=== PATIENT | male | born 1970 | race Caucasian/White ===

== ENCOUNTER 2017-07-16 09:12 | Emergency (ER) | payer OTHER, BC ==
[2017-07-16 09:22] VITALS: BP 155/74; PULSE 78; TEMP 98.6; BMI 30.1
--- NOTE | 2017-07-16 09:58 | PDOC ---
History of Present Illness - General Chief Complaint: Laceration Stated Complaint: LT LEG LACERATION Time Seen by Provider: 07/16/17 09:32 - History of Present Illness Initial Comments: 07/16/17 09:58 CHIEF COMPLAINT: HISTORY OF PRESENT ILLNESS: 47 yo M with no PMH presents to ED with s/p laceration at work. 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 Patient states he is unsure when his last tetanus shot was. No recent travel or sick contacts. PAST MEDICAL HISTORY: Denies past medical history FAMILY HISTORY: Denies SOCIAL HISTORY: Denies tobacco, alcohol, illicit drug use. SURGICAL HISTORY: Denies ALLERGIES: No known drug allergies REVIEW OF SYSTEMS General/Constitutional: Denies fever or chills. Denies weakness, weight change. HEENT: Denies change in vision. Denies ear pain or discharge. Denies sore throat. Cardiovascular: Denies chest pain or shortness of breath. Respiratory: Denies cough, wheezing, or hemoptysis. Gastrointestinal: Denies nausea, vomiting, diarrhea or constipation. Denies rectal bleeding. Genitourinary: Denies dysuria, frequency, or change in urination. Musculoskeletal: Denies joint or muscle swelling or pain. Denies neck or back pain. Skin and breasts: "I got a little cut on my leg from something in a garbage bag. " PHYSICAL EXAM General Appearance: Well-appearing, appropriately dressed. No apparent distress , no intoxication. HEENT: EOMI, PERRLA, normal ENT inspection, normal voice, TMs normal, pharynx normal. No conjunctival pallor. No photophobia, scleral icterus. Neck: Supple. Trachea midline. No tenderness, rigidity, carotid bruit, stridor , lymphadenopathy, or thyromegaly. Respiratory/Chest: Lungs CTAB. No shortness of breath, chest tenderness, respiratory distress, accessory muscle use. No crackles, rales, rhonchi, stridor , wheezing, dullness Cardiovascular: RRR. S1, S2. No JVD, murmur, bradycardia, tachycardia. Vascular Pulses: Dorsalis-Pedis (R): 2+, Dorsalis-Pedis (L): 2+ Gastrointestinal/Abdominal: Normal bowel sounds. Abdomen soft, non-distended. No tenderness or rebound tenderness. No organomegaly, pulsatile mass, guarding , hernia, hepatomegaly, splenomegaly. Lymphatic: No adenopathy, tenderness. Musculoskeletal/Extremities: 1.5 in superficial laceration to left sandoval. Normal inspection. FROM of all extremities, normal capillary refill. Pelvis Stable. No CVA tenderness. No tenderness to extremities, pedal edema, swelling , erythema or deformity. Integumentary: Appropriate color, dry, warm. 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 Fully oriented, alert. Appropriate mood/affect. Motor strength 5/5. No appreciable EOM palsy, facial droop or sensory deficit. 07/16/17 09:59 Past History - Past Medical History Allergies/Adverse Reactions: Allergies Allergy/AdvReac Type Severity Reaction Status Date / Time No Known Allergies Allergy Verified 07/16/17 09:18 Home Medications: Ambulatory Orders NK [No Known Home Medication] 07/16/17 Other medical history: none - Immunization History Immunization Up to Date: Yes - Suicide/Smoking/Psychosocial Hx Smoking History: Current every day smoker Number of Cigarettes Smoked Daily: 15 Information on smoking cessation initiated: No Hx Alcohol Use: No Drug/Substance Use Hx: No *Physical Exam - Vital Signs Last Vital Signs Temp Pulse Resp BP Pulse Ox 98.6 F 78 18 155/74 100 07/16/17 09:19 07/16/17 09:19 07/16/17 09:19 07/16/17 09:19 07/16/17 09:19 Medical Decision Making - Medical Decision Making 07/16/17 10:02 47 yo M with no PMH presents to ED with s/p laceration at work. -Tdap lac repair performed by MD Conroy Advised patient to return for wound check/suture removal in 10-14 days. Advised patient of signs of infection and of signs and symptoms for return to ER. Patient verbalized understanding and agree to plan. *DC/Admit/Observation/Transfer Diagnosis at time of Disposition: Laceration - Discharge Dispostion Disposition: HOME Condition at time of disposition: Stable Admit: No - Referrals Referrals: Norma Asencio MD [Primary Care Provider] - - Patient Instructions Printed Discharge Instructions: DI for Laceration Repair Additional Instructions: Please keep the area of injury clean and dry for the next 24-48 hours. Afterwards you may wash with mild soap and water. Return to your primary care doctor or to this hospital in 10-14 days for wound check and/or suture removal. If you develop any redness, swelling, warmth, or increased pain to the area, or you develop any fever, chills, nausea, vomiting, or diarrhea, please return to the ER immediately.
[2017-07-16] MEDS ORDERED: DIPHTH,PERTUSS(ACELL),TET 0.5 ML DISP.SYRIN IM ONE (10:52)
== END 2017-07-16 10:58 | disposition home or self-care (01) ==
LOC: JERFT 09:12
PROC: 0HQLXZZ Repair Left Lower Leg Skin, External Approach (ICD-10-PCS; principal; 2017-07-16)
PROC: 3E0234Z Introduction of Serum, Toxoid and Vaccine into Muscle, Percutaneous Approach (ICD-10-PCS; 2017-07-16)
DX: S81.812A Laceration without foreign body, left lower leg, initial encounter (principal); W26.9XXA Contact with unspecified sharp object(s), initial encounter; Y93.89 Activity, other specified; Y92.89 Other specified places as the place of occurrence of the external cause; Y99.0 Civilian activity done for income or pay; F17.210 Nicotine dependence, cigarettes, uncomplicated
CPT/HCPCS: 90715; 99281-25

== ENCOUNTER 2018-11-15 06:52 | Observation (INO) | payer BC, OTHER ==
--- NOTE | 2018-11-15 07:27 | PDOC ---
History of Present Illness - General Stated Complaint: CHEST PAIN, SHORTNESS OF BREATH History Source: Patient Exam Limitations: No Limitations - History of Present Illness Initial Comments: 11/15/18 07:46 48 yo M with no past medical hx presents to the emergency department with midsternal chest pain that began at 6:15 am today. 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 Endorses the following associative symptoms: SOB and nausea. He states he had a similar, but less intense pain 2 weeks ago while working. He is seen by Dr. Asencio and had a stress test and echo last year that was negative. Denies fevers, chills, ears/nose/throat pain, abdominal pain, dysuria, hematuria, hematochezia, and leg pain/swelling. Social: Endorses tobacco Shx: knee surgery Allergies: NKDA Medications: None Past History - Past Medical History Allergies/Adverse Reactions: Allergies Allergy/AdvReac Type Severity Reaction Status Date / Time No Known Allergies Allergy Verified 11/15/18 07:50 Home Medications: Ambulatory Orders NK [No Known Home Medication] 07/16/17 - Immunization History Immunization Up to Date: Yes - Suicide/Smoking/Psychosocial Hx Smoking History: Current every day smoker Number of Cigarettes Smoked Daily: 15 Hx Alcohol Use: No Drug/Substance Use Hx: No Review of Systems - Review of Systems Able to Perform ROS?: Yes Is the patient limited Filipino proficient: No Constitutional: No: Chills, Diaphoresis, Fever, Weakness HEENTM: No: Eye Pain, Recent change in vision, Ear Pain, Nose Pain, Throat Pain , Mouth Pain Respiratory: Yes: Shortness of Breath. No: Cough, SOB with Exertion, Hemoptysis Cardiac (ROS): Yes: Chest Pain. No: Lightheadedness, Palpitations, Syncope, Chest Tightness ABD/GI: Yes: Nausea. No: Constipated, Diarrhea, Poor Appetite, Poor Fluid Intake, Rectal Bleeding, Vomiting, Tarry Stools : No: Burning, Dysuria, Hematuria, Urgency Musculoskeletal: No: Back Pain, Joint Pain, Neck Pain Integumentary: No: Bruising, Dryness, Flushing, Rash Neurological: No: Headache, Numbness, Tingling, Ataxia, Dizziness Psychiatric: No: Change in Appetite Endocrine: No: Unexplained Weight Gain Hematologic/Lymphatic: No: Anemia *Physical Exam - Physical Exam General Appearance: Yes: Nourished, Appropriately Dressed. No: Apparent Distress, Intoxicated HEENT: positive: EOMI, DANIS, Normal Voice, Hearing Grossly Normal. negative: Nasal Congestion, Rhinorrhea, Sinus Tenderness, Excessive drooling Neck: positive: Trachea midline. negative: Tender, Lymphadenopathy (R), Lymphadenopathy (L) Respiratory/Chest: positive: Lungs Clear, Normal Breath Sounds. negative: Chest Tender, Respiratory Distress, Accessory Muscle Use, Rapid RR, Decreased Breath Sounds, Paradoxal Breathing, Crackles, Rales, Rhonchi, Stridor, Wheezing , Hyperresonant Cardiovascular: positive: Regular Rhythm, Regular Rate, S1, S2. negative: Systolic Murmur Gastrointestinal/Abdominal: positive: Normal Bowel Sounds, Flat, Soft. negative : Tender, Distended, Rebound, Tenderness Lymphatic: negative: Adenopathy Musculoskeletal: positive: Normal Inspection. negative: CVA Tenderness, Vertebral Tenderness Extremity: positive: Normal Capillary Refill, Normal Inspection, Normal Range of Motion. negative: Tender, Swelling, Calf Tenderness Integumentary: positive: Normal Color, Dry, Warm. 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 negative: EOM Palsy, Facial Droop Heart Score/ECG Review - History History: Moderately suspicious - Electrocardiogram EKG: Normal - Age Age: 45-65 - Risk Factors Risk Factors Heart Score: Yes Smoking History Based on the list above the patient has:: 1-2 risk factors - Troponin Troponin: 1-3x normal limit - Score Heart Score - Total: 4 - ECG Intrepretation Comment:: 11/15/18 09:57 ventricular rate: 66 bpm, [place] is 156 ms, QRS is 94 ms, QTc is 396 ms, normal sinus rhythm, ED Treatment Course - LABORATORY CBC & Chemistry Diagram: 11/16/18 05:30 11/15/18 08:00 Medical Decision Making - Medical Decision Making 48 yo M with no past medical hx presents to the emergency department with midsternal chest pain that began at 6:15 am today. Initial vitals: Initial Vital Signs Temp Pulse Resp BP Pulse Ox 97.7 F 70 16 187/100 H 100 11/15/18 07:00 11/15/18 07:00 11/15/18 07:00 11/15/18 07:00 11/15/18 07:00 Work up: ddx: ACS vs URI vs PNA vs pleuritis vs pericarditis vs costochondritis orders: cbc, cmp, trops, ekg, cxr, pt/inr, aptt interventions: tylenol, IVF, aspirin, nitro Laboratory Tests 11/15/18 11/15/18 11/15/18 08:00 08:00 08:00 WBC 7.5 RBC 5.65 H Hgb 17.4 H Hct 49.1 H MCV 87.0 MCH 30.7 MCHC 35.3 RDW 13.3 Plt Count 216 MPV 8.6 Absolute Neuts (auto) 4.4 Neutrophils % 58.6 Lymphocytes % 30.3 Monocytes % 8.2 Eosinophils % 2.0 Basophils % 0.9 Nucleated RBC % 0 PT with INR 11.10 INR 0.94 PTT (Actin FS) 33.3 Sodium 137 Potassium 4.2 Chloride 106 Carbon Dioxide 24 Anion Gap 7 L BUN 16 Creatinine 0.8 Creat Clearance w eGFR > 60 Random Glucose 164 H Calcium 9.1 Total Bilirubin 0.2 AST 18 ALT 39 Alkaline Phosphatase 181 H Creatine Kinase 128 Troponin I 0.07 H Total Protein 7.3 Albumin 4.2 troponins were elevated at 0.07. 11/15/18 09:52 Dr. Asencio's office was contacted. Physician business liaison manager for Dr. Asencio accepted the admission. Dr. Meraz was consulted for cardiology and a call was placed to his office. Dr. Baig is business liaison manager for him. A call was placed at 9:45 am. Another call placed at approximately 10:20 am with an overhead page. Dispo: Admission *DC/Admit/Observation/Transfer Diagnosis at time of Disposition: Elevated troponin Chest pain Qualifiers: Chest pain type: unspecified Qualified Code(s): R07.9 - Chest pain, unspecified - Referrals - Patient Instructions - Post Discharge Activity
[2018-11-15 07:50] VITALS: BMI 30.9
[2018-11-15] MEDS ORDERED: ACETAMINOPHEN 1000 MG/100 ML VIAL (NON FORMULARY) IVPB ONE (07:56)
[2018-11-15] MEDS ORDERED: SODIUM CHLORIDE 1,000 ML IV STA (07:56)
[2018-11-15] MEDS ORDERED: ONDANSETRON 4 MG/2 ML VIAL IVPUSH ONE (07:56)
[2018-11-15] MEDS ORDERED: ACETAMINOPHEN INJECTION 100 ML IVPB ONE (08:04)
[2018-11-15] MEDS ORDERED: ONDANSETRON 4 MG/2 ML VIAL ONE (08:04)
[2018-11-15 08:26] LABS: BASO % 0.9 % (0-2.0); HEMATOCRIT 49.1 % (35.4-49); HEMOGLOBIN 17.4 GM/dL (11.7-16.9); LYMPH % 30.3 % (8-40); MCH 30.7 pg (25.7-33.7); MCHC 35.3 g/dl (32.0-35.9); MEAN PLT VOLUME 8.6 fl (7.5-11.1); MONO % 8.2 % (3.8-10.2); NEUT % 58.6 % (42.8-82.8); PLATELET COUNT 216 K/MM3 (134-434); RBC 5.65 M/mm3 (4.00-5.60); RDW 13.3 % (11.9-15.9); WHITE BLOOD COUNT 7.5 K/mm3 (4.0-10.0)
--- NOTE | 2018-11-15 08:44 | PDOC ---
Attending Attestation - Resident Resident Name: Hu Hall - ED Attending Attestation I have performed the following: I have examined & evaluated the patient, The case was reviewed & discussed with the resident, I agree w/resident's findings & plan, Exceptions are as noted - HPI HPI: 48 yo M no prior history presents with substernal cp starting at 6:15 this morning, while lifting heavy garbage bags. +Prior similar symptoms 2 weeks ago. History negative stress test 1 year ago, +FH of cardiac disease. - Physicial Exam PE: GENERAL: Awake, alert, and fully oriented, in no acute distress HEAD: No signs of trauma EYES: PERRLA, EOMI, sclera anicteric, conjunctiva clear ENT: Auricles normal inspection, hearing grossly normal, nares patent, oropharynx clear without exudates. Moist mucosa NECK: Normal ROM, supple, no lymphadenopathy, JVD, or masses LUNGS: Breath sounds equal, clear to auscultation bilaterally. No wheezes, and no crackles HEART: Regular rate and rhythm, normal S1 and S2, no murmurs, rubs or gallops ABDOMEN: Soft, nontender, normoactive bowel sounds. No guarding, no rebound. No masses EXTREMITIES: Normal range of motion, no edema. No clubbing or cyanosis. No cords, erythema, or tenderness NEUROLOGICAL: Cranial nerves II through XII grossly intact. Normal speech, normal gait. Motor and sensation intact SKIN: Warm, Dry, normal turgor, no rashes or lesions noted. - Medical Decision Making Pt with exertional cp x2 times over the past 2 weeks. Will d/w cardiology and plan for admission.
[2018-11-15] MEDS ORDERED: NITROGLYCERIN SUBLINGUAL 1/150 0.4 MG TAB SL ONE (08:48)
[2018-11-15] MEDS ORDERED: ASPIRIN 81 MG CHEWABLE TABLETS PO ONE (08:48)
[2018-11-15] MEDS ORDERED: NITROGLYCERIN SUBLINGUAL 1/150 0.4 MG TAB ONE (08:50)
[2018-11-15] MEDS ORDERED: ASPIRIN 81 MG CHEWABLE TABLETS ONE (08:50)
[2018-11-15 08:53] LABS: ALBUMIN 4.2 g/dl (3.4-5.0); ALK PHOS 181 U/L (45-117); ANION GAP 7 MMOL/L (8-16); BILIRUBIN,TOTAL 0.2 mg/dL (0.2-1); BLOOD UREA NITROGEN 16 mg/dL (7-18); CALCIUM 9.1 mg/dL (8.5-10.1); CHLORIDE 106 mmol/L (98-107); CO2 24 mmol/L (21-32); CREATININE 0.8 mg/dL (0.55-1.3); GLUCOSE,RANDOM 164 mg/dL (74-106); POTASSIUM 4.2 mmol/L (3.5-5.1); SGOT/AST 18 U/L (15-37); SGPT/ALT 39 U/L (13-61); SODIUM 137 mmol/L (136-145); TOT PROT 7.3 g/dl (6.4-8.2)
[2018-11-15 08:57] LABS: INR 0.94 (0.83-1.09); PROTHROMBIN TIME (PATIENT) 11.1 SEC (9.7-13.0)
[2018-11-15 08:59] LABS: ACTIVATED PTT 33.3 SECONDS (25.2-36.5)
--- NOTE | 2018-11-15 10:45 | EKG ---
Test Reason : Blood Pressure : / mmHG Vent. Rate : 066 BPM Atrial Rate : 066 BPM P-R Int : 156 ms QRS Dur : 094 ms QT Int : 378 ms P-R-T Axes : 024 069 037 degrees QTc Int : 396 ms NORMAL SINUS RHYTHM POSSIBLE INFERIOR INFARCT , AGE UNDETERMINED ABNORMAL ECG NO PREVIOUS ECGS AVAILABLE Confirmed by CHRISTINE WARREN, JUAN C ([id number]) on 11/15/2018 10:45:31 AM Referred By: Confirmed By:JUAN C KING MD
--- NOTE | 2018-11-15 12:29 | CON.CARD ---
Consult Consult Specialty:: Cardiology - History of Present Illness History of Present Illness: 48 yo M with no past medical hx presents to the emergency department with midsternal chest pain that began at 6:15 am today. 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 Endorses the following associative symptoms: SOB and nausea. He states he had a similar, but less intense pain 2 weeks ago while working. He is seen by Dr. Asencio and had a stress test and echo last year that was negative. Denies fevers, chills, ears/nose/throat pain, abdominal pain, dysuria, hematuria, hematochezia, and leg pain/swelling. Social: Endorses tobacco Shx: knee surgery Allergies: NKDA Medications: None - History Source History Provided By: Patient, Medical Record - Alcohol/Substance Use Hx Alcohol Use: No - Smoking History Smoking history: Current every day smoker Have you smoked in the past 12 months: Yes Aproximately how many cigarettes per day: 15 Home Medications - Allergies Allergies/Adverse Reactions: Allergies Allergy/AdvReac Type Severity Reaction Status Date / Time No Known Allergies Allergy Verified 11/15/18 07:50 - Home Medications Home Medications: Ambulatory Orders NK [No Known Home Medication] 07/16/17 Review of Systems - Review of Systems Constitutional: reports: No Symptoms Eyes: reports: No Symptoms HENT: reports: No Symptoms Neck: reports: No Symptoms Cardiovascular: reports: Chest Pain Gastrointestinal: reports: No Symptoms Genitourinary: reports: No Symptoms Breasts: reports: No Symptoms Reported Musculoskeletal: reports: No Symptoms Integumentary: reports: No Symptoms Neurological: reports: No Symptoms Endocrine: reports: No Symptoms Hematology/Lymphatic: reports: No Symptoms Psychiatric: reports: No Symptoms Vital Signs: Vital Signs Temperature 97.7 F 11/15/18 07:00 Pulse Rate 54 L 11/15/18 09:47 Respiratory Rate 18 11/15/18 09:47 Blood Pressure 139/74 11/15/18 09:47 O2 Sat by Pulse Oximetry (%) 98 11/15/18 09:47 Constitutional: Yes: Well Nourished, No Distress, Calm Eyes: Yes: WNL, Conjunctiva Clear, EOM Intact HENT: Yes: WNL, Atraumatic, Normocephalic Neck: Yes: WNL, Supple, Trachea Midline Respiratory: Yes: WNL, Regular, CTA Bilaterally Gastrointestinal: Yes: WNL, Normal Bowel Sounds Renal/: Yes: WNL Cardiovascular: Yes: WNL, Regular Rate and Rhythm Musculoskeletal: Yes: WNL Extremities: Yes: WNL Integumentary: Yes: WNL Neurological: Yes: WNL, Alert, Oriented ...Motor Strength: WNL Psychiatric: Yes: WNL, Alert, Oriented - Other Data Labs, Other Data: CBC, BMP 11/15/18 08:00 11/15/18 08:00 INR, PTT INR 0.94 (0.83-1.09) 11/15/18 08:00 Troponin, BNP 11/15/18 08:00 Troponin I 0.07 H Troponin, BNP 11/15/18 08:00 Troponin I 0.07 H Laboratory Tests 11/15/18 11/15/18 11/15/18 08:00 08:00 08:00 WBC 7.5 RBC 5.65 H Hgb 17.4 H Hct 49.1 H MCV 87.0 MCH 30.7 MCHC 35.3 RDW 13.3 Plt Count 216 MPV 8.6 Absolute Neuts (auto) 4.4 Neutrophils % 58.6 Lymphocytes % 30.3 Monocytes % 8.2 Eosinophils % 2.0 Basophils % 0.9 Nucleated RBC % 0 PT with INR 11.10 INR 0.94 PTT (Actin FS) 33.3 Sodium 137 Potassium 4.2 Chloride 106 Carbon Dioxide 24 Anion Gap 7 L BUN 16 Creatinine 0.8 Creat Clearance w eGFR > 60 Random Glucose 164 H Calcium 9.1 Total Bilirubin 0.2 AST 18 ALT 39 Alkaline Phosphatase 181 H Creatine Kinase 128 Troponin I 0.07 H Total Protein 7.3 Albumin 4.2 Imaging - Results Chest X-ray: Image Reviewed (no i/e) EKG: Image Reviewed (sr ?old IW HI) Assessment/Plan angina borderline elevation pof TNI,s neg cardiac w/u as per patient last year Plan echo serial ekgs and CE add Plavix Toprol check lipids depending on hospital course may need c. cath or stress test.
[2018-11-15] MEDS: metoPROLOL SUCCINATE 25 MG TAB.SR.24H (FP) PO SCH (13:50)
[2018-11-15] MEDS ORDERED: CLOPIDOGREL BISULFATE 300 MG TABLET PO ONE (13:55)
[2018-11-15] MEDS ORDERED: CLOPIDOGREL BISULFATE 300 MG TABLET ONE (14:42)
--- NOTE | 2018-11-15 14:53 | HP ---
Admitting History and Physical - Primary Care Physician PCP: Norma Asencio - Admission Chief Complaint: chest pain History of Present Illness: developed retrosternal chest pain/burning this am, lasted several minutes. similar episode about a month ago. felt uncomfortable enough to come to er. non-radiating, no associated nausea, vomiting, dizziness, palpitation, diaphoresis. pain resolved by itself, however on arrival pt was very hypertensive, 187/100 received sl. nitrate, currently bp is controlled. History Source: Patient Limitations to Obtaining History: No Limitations - Past Medical History Endocrine: Yes: Other (pre-diabetes) - Past Surgical History Additional Past Surgical History: patellar surgery after accident - Smoking History Smoking history: Current every day smoker Have you smoked in the past 12 months: Yes Aproximately how many cigarettes per day: 15 - Alcohol/Substance Use Hx Alcohol Use: No - Social History Usual Living Arrangement: Yes: With Spouse ADL: Independent History of Recent Travel: No Home Medications - Allergies Allergies/Adverse Reactions: Allergies Allergy/AdvReac Type Severity Reaction Status Date / Time No Known Allergies Allergy Verified 11/15/18 07:50 - Home Medications Home Medications: Ambulatory Orders NK [No Known Home Medication] 07/16/17 Family Disease History - Family Disease History Family Disease History: Heart Disease: Father (CAD) Review of Systems Findings/Remarks: currently well, no complaints - Review of Systems Constitutional: reports: No Symptoms Eyes: reports: No Symptoms HENT: reports: No Symptoms Neck: reports: No Symptoms Cardiovascular: reports: No Symptoms Respiratory: reports: No Symptoms Gastrointestinal: reports: No Symptoms Genitourinary: reports: No Symptoms Musculoskeletal: reports: No Symptoms Integumentary: reports: No Symptoms Neurological: reports: No Symptoms Physical Examination Vital Signs: Vital Signs Temperature 97.7 F 11/15/18 07:00 Pulse Rate 54 L 11/15/18 09:47 Respiratory Rate 18 11/15/18 09:47 Blood Pressure 139/74 11/15/18 09:47 O2 Sat by Pulse Oximetry (%) 98 11/15/18 09:47 Constitutional: Yes: Well Nourished, No Distress Eyes: Yes: Conjunctiva Clear, EOM Intact HENT: Yes: Normocephalic Neck: Yes: Supple, Trachea Midline Cardiovascular: Yes: Regular Rate and Rhythm. No: Murmur Respiratory: Yes: Regular, CTA Bilaterally Gastrointestinal: Yes: Normal Bowel Sounds, Soft Musculoskeletal: Yes: WNL Extremities: Yes: WNL Edema: No Peripheral Pulses WNL: Yes Neurological: Yes: WNL Labs: CBC, BMP 11/15/18 08:00 11/15/18 08:00 Abnormal Lab Results 11/15/18 11/15/18 11/15/18 08:00 08:00 15:30 RBC 5.65 H Hgb 17.4 H Hct 49.1 H Anion Gap 7 L Random Glucose 164 H Alkaline Phosphatase 181 H Troponin I 0.07 H 0.10 H Imaging - Results Chest X-ray: Report Reviewed Problem List - Problems (1) HTN (hypertension) Code(s): I10 - ESSENTIAL (PRIMARY) HYPERTENSION Qualifiers: Hypertension type: essential hypertension Qualified Code(s): I10 - Essential (primary) hypertension (2) Chest pain Code(s): R07.9 - CHEST PAIN, UNSPECIFIED Qualifiers: Chest pain type: unspecified Qualified Code(s): R07.9 - Chest pain, unspecified Assessment/Plan r/o ACS serial cardiac enzyme echo stress test vs. cardiac cath, depending on above results. consult appreciated.
[2018-11-16 06:11] LABS: BASO % 0.8 % (0-2.0); LYMPH % 36.5 % (8-40); MCH 30.3 pg (25.7-33.7); MCHC 34.7 g/dl (32.0-35.9); MEAN CELL VOLUME 87.3 fl (80-96); MEAN PLT VOLUME 8.7 fl (7.5-11.1); MONO % 8.1 % (3.8-10.2); NEUT % 51.6 % (42.8-82.8); PLATELET COUNT 206 K/MM3 (134-434); RBC 5.61 M/mm3 (4.00-5.60); RDW 13.2 % (11.9-15.9); WHITE BLOOD COUNT 7.5 K/mm3 (4.0-10.0)
[2018-11-16] MEDS ORDERED: amLODIPine BESYLATE 5 MG TABLET (FP) ONE (08:43)
[2018-11-16] MEDS: amLODIPine BESYLATE 5 MG TABLET (FP) PO SCH (09:09)
--- NOTE | 2018-11-16 09:11 | PN ---
Progress Note (short form) - Note Progress Note: seen at [facility] troponin peaked at 0.1 yesterday afternoon, this am 0.06 wnl had a short episode of burning chest pain last night again BP elevated sugar elevated CBC, BMP 11/16/18 05:30 11/15/18 08:00 Vital Signs Period Temp Pulse Resp BP Sys/Awan Pulse Ox Last 24 Hr 54-68 18-18 139-156/74-107 98-99 s1s2 rrr lungs cta abd soft nt no edema HTN NIDDM chest pain r/o cad stress test this am cont asa/plavix for now add metformin needs close outpt f/up after dc provided stress test is normal Problem List - Problems (1) HTN (hypertension) Code(s): I10 - ESSENTIAL (PRIMARY) HYPERTENSION Qualifiers: Hypertension type: essential hypertension Qualified Code(s): I10 - Essential (primary) hypertension (2) Chest pain Code(s): R07.9 - CHEST PAIN, UNSPECIFIED Qualifiers: Chest pain type: unspecified Qualified Code(s): R07.9 - Chest pain, unspecified
[2018-11-16 10:03] LABS: ALBUMIN 3.7 g/dl (3.4-5.0); ALK PHOS 159 U/L (45-117); ANION GAP 10 MMOL/L (8-16); BILIRUBIN,TOTAL 0.2 mg/dL (0.2-1); BLOOD UREA NITROGEN 17 mg/dL (7-18); CALCIUM 8.8 mg/dL (8.5-10.1); CHLORIDE 106 mmol/L (98-107); CHOLESTEROL 274 mg/dL (50-200); CO2 22 mmol/L (21-32); CREATININE 0.8 mg/dL (0.55-1.3); GLUCOSE,RANDOM 151 mg/dL (74-106); HDL CHOLESTEROL 31 mg/dL (40-60); POTASSIUM 4.2 mmol/L (3.5-5.1); SGOT/AST 13 U/L (15-37); SGPT/ALT 32 U/L (13-61); SODIUM 139 mmol/L (136-145); TOT PROT 6.5 g/dl (6.4-8.2); TRIGLYCERIDES 344 mg/dL (0-150)
[2018-11-16] MEDS ORDERED: ATORVASTATIN CA 80 MG TABLET (FP) PO ONE (10:13)
--- NOTE | 2018-11-16 11:16 | ECHO ---
Name: ARACELY CERON Exam:Adult Echocardiogram Study Date: 11/15/2018 02:30 PM Age: 48 yrs Reason For Study: LVEF Height: 71 in Weight: 222 lb BSA: 2.2 m2 MMode/2D Measurements & Calculations IVSd: 0.98 cm Ao root diam: 2.7 cm LVIDd: 5.4 cm LA dimension: 4.2 cm LVIDs: 3.4 cm LVPWd: 0.95 cm EDV(Teich): 139.7 ml TAPSE: 1.9 cm ESV(Teich): 48.8 ml Doppler Measurements & Calculations MV E max gilberto: 97.2 cm/sec Ao V2 max: 155.3 cm/sec MV A max gilberto: 93.8 cm/sec Ao max P.6 mmHg MV E/A: 1.0 Ao V2 mean: 109.0 cm/sec MV dec time: 0.17 sec Ao mean P.3 mmHg Ao V2 VTI: 29.9 cm LV V1 max P.7 mmHg MR max gilberto: 360.9 cm/sec LV V1 mean P.8 mmHg MR max P.4 mmHg LV V1 max: 96.1 cm/sec LV V1 mean: 61.3 cm/sec LV V1 VTI: 17.5 cm Med Peak E' Gilberto: 7.1 cm/sec Med E/e': 13.7 Lat Peak E' Gilberto: 7.1 cm/sec Lat E/e': 13.7 Procedure A complete two-dimensional transthoracic echocardiogram was performed (2D, M-mode, Doppler and color flow Doppler). Left Ventricle The left ventricle is normal in size. Left ventricular systolic function is normal. Ejection Fraction = 60- 65%. No regional wall motion abnormalities noted. Right Ventricle The right ventricle is normal size. The right ventricular systolic function is normal. RV systolic TD I is 11 cm/s. Atria The left atrium is mildly dilated. Right atrial size is normal. Mitral Valve There is mild mitral annular calcification. There is mild mitral regurgitation. Tricuspid Valve The tricuspid valve is normal in structure and function. There is mild tricuspid regurgitation. Aortic Valve The aortic valve is normal in structure and function. No aortic regurgitation is present. Pulmonic Valve The pulmonic valve is not well visualized. Great Vessels The aortic root is normal size. Pericardium/Pleura There is no pericardial effusion. Interpretation Summary The left ventricle is normal in size. Left ventricular systolic function is normal. No regional wall motion abnormalities noted. Ejection Fraction = 60-65%. The right ventricular systolic function is normal. The left atrium is mildly dilated. Right atrial size is normal. There is mild mitral annular calcification. There is mild mitral regurgitation. There is mild tricuspid regurgitation. There is no pericardial effusion. Previous study is not available for comparison Oscar Awad MD 11/16/2018 11:15 AM
[2018-11-16] MEDS ORDERED: ATORVASTATIN CA 40 MG TABLET (FP) ONE (11:32)
[2018-11-16] MEDS: metoPROLOL SUCCINATE 25 MG TAB.SR.24H (FP) PO SCH (11:46)
[2018-11-16] MEDS: CLOPIDOGREL BISULFATE 75 MG TABLET (FP) PO SCH (11:46)
--- NOTE | 2018-11-16 12:00 | PN ---
Progress Note, Physician Chief Complaint: Pt A&Ox3; had another bout of burning chest pain at 1 am while at rest that lasted several minutes. History of Present Illness: 48 yo M with no past medical hx presents to the emergency department with midsternal chest pain that began at 6:15 am today. 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 Endorses the following associative symptoms: SOB and nausea. He states he had a similar, but less intense pain 2 weeks ago while working. He is seen by Dr. Asencio and had a stress test and echo last year that was negative. Denies fevers, chills, ears/nose/throat pain, abdominal pain, dysuria, hematuria, hematochezia, and leg pain/swelling. Social: Endorses tobacco Shx: knee surgery Allergies: NKDA Medications: None - Current Medication List Current Medications: Active Medications Amlodipine Besylate (Norvasc -) 5 mg PO DAILY [facility] Last Admin: 11/16/18 09:09 Dose: 5 mg Atorvastatin Calcium (Lipitor -) 80 mg PO HS [facility] Clopidogrel Bisulfate (Plavix -) 75 mg PO DAILY [facility] Last Admin: 11/16/18 11:46 Dose: 75 mg Enoxaparin Sodium (Lovenox -) 100 mg SQ Q12H [facility] Lisinopril (Prinivil) 2.5 mg PO ONCE ONE Stop: 11/16/18 11:59 Lisinopril (Prinivil) 2.5 mg PO DAILY [facility] Metformin HCl (Glucophage -) 500 mg PO BID@0700,1630 [facility] Metoprolol Succinate (Toprol Xl -) 25 mg PO DAILY [facility] Last Admin: 11/16/18 11:46 Dose: 25 mg - Objective Vital Signs: Vital Signs Temperature 97.7 F 11/15/18 07:00 Pulse Rate 63 11/16/18 05:56 Respiratory Rate 18 11/16/18 05:56 Blood Pressure 148/96 11/16/18 08:05 O2 Sat by Pulse Oximetry (%) 99 11/16/18 05:56 Constitutional: Yes: Well Nourished, Anxious Eyes: Yes: WNL HENT: Yes: WNL Neck: Yes: WNL Cardiovascular: Yes: WNL Respiratory: Yes: WNL Gastrointestinal: Yes: Soft ...Rectal Exam: Yes: Deferred Genitourinary: No: Anuria Breast(s): Yes: WNL Musculoskeletal: Yes: WNL Extremities: Yes: WNL Edema: No Peripheral Pulses WNL: Yes Integumentary: Yes: Tattoos Neurological: Yes: WNL ...Motor Strength: WNL Psychiatric: Yes: WNL Labs: CBC, BMP 11/16/18 05:30 11/16/18 05:30 INR, PTT INR 0.94 (0.83-1.09) 11/15/18 08:00 Abnormal Lab Results 11/16/18 11/16/18 11/16/18 05:30 05:30 05:30 RBC 5.61 H Hgb 17.0 H Random Glucose 151 H Hemoglobin A1c % 7.6 H AST 13 L Alkaline Phosphatase 159 H Troponin I 0.06 H Triglycerides 344 H Cholesterol 274 H Total LDL Cholesterol 193 H HDL Cholesterol 31 L TSH 11/16/18 16:45 RBC Hgb Random Glucose Hemoglobin A1c % AST Alkaline Phosphatase Troponin I Triglycerides Cholesterol Total LDL Cholesterol HDL Cholesterol TSH 0.35 L - ....Imaging Chest X-ray: Image Reviewed EKG: Image Reviewed Problem List - Problems (1) Diabetes Assessment/Plan: Pt's glucose is > 150; HGBA1c 7.6. Code(s): E11.9 - TYPE 2 DIABETES MELLITUS WITHOUT COMPLICATIONS (2) Hyperlipidemia Assessment/Plan: atorvastatin 80 mg daily started. Code(s): E78.5 - HYPERLIPIDEMIA, UNSPECIFIED (3) Cigarette nicotine dependence Assessment/Plan: Pt agrees to try nicotine patch Code(s): F17.210 - NICOTINE DEPENDENCE, CIGARETTES, UNCOMPLICATED (4) Chest pain Assessment/Plan: Repeated bouts of central burning, tight chest pain with exertion lately, and one episode early am today while at rest. Multiple cardiac risks. EKG: ? old IWMI; NSR. TNI mildly elevated serially. EKG repeat unchanged (NSR; narrow Qs inferiorly). ECHO: normal LVEF and wall motion; mild LAE; borderline LVE; mild MR and TR. Metoprolol, lisinopril, amlodipine, atorvastatin started. Now on Lovenox, ASA. Clopidogrel loading (300-600 mg) once, then 75 mg daily. Nitrates if pain recurs. Plan for coronary artery evaluation (with TNI fluctuating and BP elevated, stress MIBI was postponed; coronary angiogram will likely be necessary, given the number of uncontrolled cardiac risk factors and ongoing episodes of chest pain). Code(s): R07.9 - CHEST PAIN, UNSPECIFIED Qualifiers: Chest pain type: unspecified Qualified Code(s): R07.9 - Chest pain, unspecified (5) Elevated troponin Assessment/Plan: Mild elevation of TNI. See under "chest hernandez". Code(s): R74.8 - ABNORMAL LEVELS OF OTHER SERUM ENZYMES (6) HTN (hypertension) Assessment/Plan: On metoprolol and amlodipine. Add lisinopril 2.5 mg daily (HTN; CAD; DM). Code(s): I10 - ESSENTIAL (PRIMARY) HYPERTENSION Qualifiers: Hypertension type: essential hypertension Qualified Code(s): I10 - Essential (primary) hypertension (7) [place] cardiac risk >20% in next 10 years Assessment/Plan: Pt with multiple cardiac risk factors. Now with several episodes of exertion-related chest pain, and similar chest pain at rest early this morning, and mildly elevated TNI serially. Plan: Follow TNI and EKGs serially. Start Lovenox 100 mg bid. Atorvastatin 80 mg daily. BP control with metoprolol and amlodipine; add lisinopril (HTN; CAD; DM). Pt has had rest portion of stress MIBI; once BP is controlled and TNI/EKG/ telemetry trends followed, will decide in am whether pt will complete stress MIBI or be scheuled for coronary angiogram. Code(s): Z91.89 - OTH PERSONAL RISK FACTORS, NOT ELSEWHERE CLASSIFIED
--- NOTE | 2018-11-16 12:13 | EKG ---
Test Reason : Blood Pressure : / mmHG Vent. Rate : 056 BPM Atrial Rate : 056 BPM P-R Int : 168 ms QRS Dur : 092 ms QT Int : 396 ms P-R-T Axes : 049 073 070 degrees QTc Int : 382 ms SINUS BRADYCARDIA POSSIBLE INFERIOR INFARCT (CITED ON OR BEFORE 15-NOV-2018) ABNORMAL ECG WHEN COMPARED WITH ECG OF 15-NOV-2018 07:05, NO SIGNIFICANT CHANGE WAS FOUND Confirmed by MD OCTAVIA, ANDREZ ([id number]) on 11/16/2018 12:12:45 PM Referred By: Jacquelyn SHEPARD Confirmed By:ANDREZ DUDLEY MD
[2018-11-16] MEDS ORDERED: LISINOPRIL 5 MG TABLET (FP) PO ONE (12:15)
[2018-11-16] MEDS ORDERED: ENOXAPARIN NA (PORCINE) 100 MG/1 ML DISP.SYRIN SQ ONE (12:32)
[2018-11-16] MEDS ORDERED: LISINOPRIL 5 MG TABLET (FP) ONE (12:32)
[2018-11-16] MEDS: ENOXAPARIN NA (PORCINE) 100 MG/1 ML DISP.SYRIN SQ SCH ×2 (12:44→21:20)
[2018-11-16] MEDS: NICOTINE 21 MG/24 HOURS TOPICAL PATCH TD SCH (13:54)
[2018-11-16] MEDS ORDERED: metFORMIN HCL 500 MG TABLET (FP) PO SCH (16:30)
[2018-11-17] MEDS: LISINOPRIL 5 MG TABLET (FP) PO SCH (10:17)
[2018-11-17] MEDS: CLOPIDOGREL BISULFATE 75 MG TABLET (FP) PO SCH (10:17)
[2018-11-17] MEDS: metoPROLOL SUCCINATE 25 MG TAB.SR.24H (FP) PO SCH ×2 (10:17→11:10)
[2018-11-17] MEDS: NICOTINE 21 MG/24 HOURS TOPICAL PATCH TD SCH (10:17)
[2018-11-17] MEDS: amLODIPine BESYLATE 5 MG TABLET (FP) PO SCH (10:17)
[2018-11-17] MEDS: ENOXAPARIN NA (PORCINE) 100 MG/1 ML DISP.SYRIN SQ SCH ×2 (10:17→21:33)
--- NOTE | 2018-11-17 13:08 | PN ---
Progress Note (short form) - Note Progress Note: d/w cardiology yesterday, stress test was cancelled, another episode of retrosternal burning for couple minutes last night Vital Signs Period Temp Pulse Resp BP Sys/Awan Pulse Ox Last 24 Hr 97.5 F-97.8 F 62-72 16-18 128-145/75-88 97-98 s1s2 rrr lungs cta abd soft nt no edema HTN NIDDM chest pain r/o asc stress test at rest showed moderately decreased tracer uptake ininferior and prox.inferolateral wall. echo showed nl LVSF ACS awaiting transfer to [facility] for card. cath. within next 24 hours Problem List - Problems (1) HTN (hypertension) Code(s): I10 - ESSENTIAL (PRIMARY) HYPERTENSION Qualifiers: Hypertension type: essential hypertension Qualified Code(s): I10 - Essential (primary) hypertension (2) Chest pain Code(s): R07.9 - CHEST PAIN, UNSPECIFIED Qualifiers: Chest pain type: unspecified Qualified Code(s): R07.9 - Chest pain, unspecified
--- NOTE | 2018-11-17 18:00 | PN ---
Progress Note, Physician History of Present Illness: 48 yo M with no past medical hx presents to the emergency department with midsternal chest pain that began at 6:15 am today. 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 Endorses the following associative symptoms: SOB and nausea. He states he had a similar, but less intense pain 2 weeks ago while working. He is seen by Dr. Asencio and had a stress test and echo last year that was negative. Denies fevers, chills, ears/nose/throat pain, abdominal pain, dysuria, hematuria, hematochezia, and leg pain/swelling. Social: Endorses tobacco Shx: knee surgery Allergies: NKDA Medications: None - Current Medication List Current Medications: Active Medications Amlodipine Besylate (Norvasc -) 5 mg PO DAILY [facility] Last Admin: 11/17/18 10:17 Dose: 5 mg Atorvastatin Calcium (Lipitor -) 80 mg PO [facility] Clopidogrel Bisulfate (Plavix -) 75 mg PO DAILY [facility] Last Admin: 11/17/18 10:17 Dose: 75 mg Enoxaparin Sodium (Lovenox -) 100 mg SQ BID [facility] Last Admin: 11/17/18 10:17 Dose: 100 mg Lisinopril (Prinivil) 2.5 mg PO DAILY [facility] Last Admin: 11/17/18 10:17 Dose: 2.5 mg Metoprolol Succinate (Toprol Xl -) 25 mg PO DAILY [facility] Last Admin: 11/17/18 11:10 Dose: 25 mg Nicotine (Nicoderm Patch -) 21 mg TD DAILY [facility] Last Admin: 11/17/18 10:17 Dose: 21 mg - Objective Vital Signs: Vital Signs Temperature 98.6 F 11/17/18 14:00 Pulse Rate 69 11/17/18 14:00 Respiratory Rate 20 11/17/18 14:00 Blood Pressure 139/77 11/17/18 14:00 O2 Sat by Pulse Oximetry (%) 97 11/17/18 13:00 Eyes: Yes: WNL, Conjunctiva Clear, EOM Intact HENT: Yes: WNL, Atraumatic, Normocephalic Neck: Yes: WNL, Supple, Trachea Midline Cardiovascular: Yes: WNL, Regular Rate and Rhythm Respiratory: Yes: WNL, Regular, CTA Bilaterally Gastrointestinal: Yes: WNL, Normal Bowel Sounds Genitourinary: Yes: WNL Musculoskeletal: Yes: WNL Extremities: Yes: WNL Edema: No Integumentary: Yes: WNL Neurological: Yes: WNL, Alert, Oriented ...Motor Strength: WNL Psychiatric: Yes: WNL Labs: CBC, BMP 11/16/18 05:30 11/16/18 16:45 INR, PTT INR 0.94 (0.83-1.09) 11/15/18 08:00 Assessment/Plan - Problems (1) Diabetes Assessment/Plan: Pt's glucose is > 150; HGBA1c 7.6. Code(s): E11.9 - TYPE 2 DIABETES MELLITUS WITHOUT COMPLICATIONS (2) Hyperlipidemia Assessment/Plan: atorvastatin 80 mg daily started. Code(s): E78.5 - HYPERLIPIDEMIA, UNSPECIFIED (3) Cigarette nicotine dependence Assessment/Plan: Pt agrees to try nicotine patch Code(s): F17.210 - NICOTINE DEPENDENCE, CIGARETTES, UNCOMPLICATED (4) Chest pain Assessment/Plan: Repeated bouts of central burning, tight chest pain with exertion lately, and one episode early am today while at rest. Multiple cardiac risks. EKG: ? old IWMI; NSR. resting mibi inf lat defect. TNI mildly elevated serially. EKG repeat unchanged (NSR; narrow Qs inferiorly). ECHO: normal LVEF and wall motion; mild LAE; borderline LVE; mild MR and TR. Metoprolol, lisinopril, amlodipine, atorvastatin started. Now on Lovenox, ASA. Clopidogrel loading (300-600 mg) once, then 75 mg daily. Nitrates if pain recurs. Plan for coronary artery evaluation (with TNI fluctuating and BP elevated, stress MIBI was postponed; coronary angiogram in am, given the number of uncontrolled cardiac risk factors and likely old IW NC and ongoing episodes of chest pain). Code(s): R07.9 - CHEST PAIN, UNSPECIFIED Qualifiers: Chest pain type: unspecified Qualified Code(s): R07.9 - Chest pain, unspecified (5) Elevated troponin Assessment/Plan: Mild elevation of TNI. See under "chest hernandez". Code(s): R74.8 - ABNORMAL LEVELS OF OTHER SERUM ENZYMES (6) HTN (hypertension) Assessment/Plan: On metoprolol and amlodipine. Add lisinopril 2.5 mg daily (HTN; CAD; DM). Code(s): I10 - ESSENTIAL (PRIMARY) HYPERTENSION Qualifiers: Hypertension type: essential hypertension Qualified Code(s): I10 - Essential (primary) hypertension (7) [place] cardiac risk >20% in next 10 years Assessment/Plan: Pt with multiple cardiac risk factors. Now with several episodes of exertion-related chest pain, and similar chest pain at rest early this morning, and mildly elevated TNI serially. Plan: Follow TNI and EKGs serially. Start Lovenox 100 mg bid. Atorvastatin 80 mg daily. BP control with metoprolol and amlodipine; add lisinopril (HTN; CAD; DM). Pt has had rest portion of stress MIBI; once BP is controlled and TNI/EKG/ telemetry trends followed, will decide in am whether pt will complete stress MIBI or be scheuled for coronary angiogram. Code(s): Z91.89 - OTH PERSONAL RISK FACTORS, NOT ELSEWHERE CLASSIFIED
[2018-11-17] MEDS ORDERED: ATORVASTATIN CA 80 MG TABLET (FP) PO SCH (22:00)
--- NOTE | 2018-11-18 08:49 | DS ---
Physical Examination Vital Signs: Vital Signs Temperature 97.7 F 11/18/18 06:00 Pulse Rate 61 11/18/18 06:00 Respiratory Rate 18 11/18/18 07:14 Blood Pressure 138/76 11/18/18 06:00 O2 Sat by Pulse Oximetry (%) 98 11/18/18 07:14 Findings/Remarks: pain free at present Constitutional: Yes: Well Nourished, No Distress Eyes: Yes: Conjunctiva Clear HENT: Yes: Normocephalic Neck: Yes: Trachea Midline Cardiovascular: Yes: Regular Rate and Rhythm Respiratory: Yes: CTA Bilaterally Gastrointestinal: Yes: Normal Bowel Sounds, Soft Edema: No Peripheral Pulses WNL: Yes Labs: CBC, BMP 11/16/18 05:30 11/16/18 16:45 Discharge Summary Reason For Visit: CHEST PAIN, ELEVATED TROPONIN LEVEL Current Active Problems Chest pain (Acute) Cigarette nicotine dependence (Acute) Diabetes (Acute) Elevated troponin (Acute) [place] cardiac risk >20% in next 10 years (Acute) HTN (hypertension) (Acute) Hyperlipidemia (Acute) Hospital Course: admitted for retrosternal chest pain serial cardiac enzymes resulted in a troponin elevated at 0.1 resting stress imaging showed moderately decreased tracer uptake ininferior and prox.inferolateral wall. echo showed nl LVSF ACS awaiting transfer to tertiary care center for card. cath. within next 24 hours on bblocker/asa/plavix/statin/lmwh - Instructions Disposition: TRANSFER ACUTE CARE/OTHER HOSP - Home Medications Comprehensive Discharge Medication List: Ambulatory Orders NK [No Known Home Medication] 07/16/17
[2018-11-18] MEDS: amLODIPine BESYLATE 5 MG TABLET (FP) PO SCH (09:24)
[2018-11-18] MEDS: metoPROLOL SUCCINATE 25 MG TAB.SR.24H (FP) PO SCH (09:24)
[2018-11-18] MEDS: LISINOPRIL 5 MG TABLET (FP) PO SCH (09:24)
[2018-11-18] MEDS: NICOTINE 21 MG/24 HOURS TOPICAL PATCH TD SCH (09:24)
[2018-11-18] MEDS: CLOPIDOGREL BISULFATE 75 MG TABLET (FP) PO SCH (09:24)
[2018-11-18] MEDS: ENOXAPARIN NA (PORCINE) 100 MG/1 ML DISP.SYRIN SQ SCH (09:25)
[2018-11-18 09:43] VITALS: BP 135/77; PULSE 65
[2018-11-18 09:44] VITALS: TEMP 98.1
--- NOTE | 2018-11-18 10:38 | PN ---
Progress Note, Physician Chief Complaint: Pt A&Ox3; no chest pain x 24 hours. History of Present Illness: 48 yo M (b. [place]) with no past medical hx presents to the emergency department with midsternal chest pain that began at 6:15 am today. 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 Endorses the following associative symptoms: SOB and nausea. He states he had a similar, but less intense pain 2 weeks ago while working. He is seen by Dr. Asencio and had a stress test and echo last year that was negative. Denies fevers, chills, ears/ nose/throat pain, abdominal pain, dysuria, hematuria, hematochezia, and leg pain /swelling. Social: Endorses tobacco Shx: knee surgery Allergies: NKDA Medications: None - Current Medication List Current Medications: Active Medications Amlodipine Besylate (Norvasc -) 5 mg PO DAILY [facility] Last Admin: 11/18/18 09:24 Dose: 5 mg Atorvastatin Calcium (Lipitor -) 80 mg PO HS [facility] Last Admin: 11/17/18 21:33 Dose: 80 mg Clopidogrel Bisulfate (Plavix -) 75 mg PO DAILY [facility] Last Admin: 11/18/18 09:24 Dose: 75 mg Enoxaparin Sodium (Lovenox -) 100 mg SQ BID [facility] Last Admin: 11/18/18 09:25 Dose: Not Given Lisinopril (Prinivil) 2.5 mg PO DAILY [facility] Last Admin: 11/18/18 09:24 Dose: 2.5 mg Metoprolol Succinate (Toprol Xl -) 25 mg PO DAILY [facility] Last Admin: 11/18/18 09:24 Dose: 25 mg Nicotine (Nicoderm Patch -) 21 mg TD DAILY [facility] Last Admin: 11/18/18 09:24 Dose: 21 mg - Objective Vital Signs: Vital Signs Temperature 98.1 F 11/18/18 09:43 Pulse Rate 65 11/18/18 09:42 Respiratory Rate 18 11/18/18 09:42 Blood Pressure 135/77 11/18/18 09:42 O2 Sat by Pulse Oximetry (%) 98 11/18/18 07:14 Constitutional: Yes: Anxious Eyes: Yes: WNL HENT: Yes: WNL Neck: Yes: WNL Cardiovascular: Yes: WNL, Regular Rate and Rhythm, S4 Respiratory: Yes: WNL Gastrointestinal: Yes: Soft ...Rectal Exam: Yes: Deferred Genitourinary: No: Anuria Breast(s): Yes: WNL Musculoskeletal: Yes: WNL Extremities: Yes: WNL Edema: No Peripheral Pulses WNL: Yes Integumentary: Yes: WNL Neurological: Yes: WNL Psychiatric: Yes: WNL Labs: CBC, BMP 11/16/18 05:30 11/16/18 16:45 INR, PTT INR 0.94 (0.83-1.09) 11/15/18 08:00 - ....Imaging Other: Image Reviewed (telemetry: NSR; no arrhythmias or STT changes) Problem List - Problems (1) Diabetes Assessment/Plan: Pt's glucose is > 150; HGBA1c 7.6. On lisinopril (HTN; DM). Code(s): E11.9 - TYPE 2 DIABETES MELLITUS WITHOUT COMPLICATIONS (2) Hyperlipidemia Assessment/Plan: atorvastatin 80 mg daily started. Code(s): E78.5 - HYPERLIPIDEMIA, UNSPECIFIED (3) Cigarette nicotine dependence Assessment/Plan: Pt agrees to try nicotine patch; he says it has stopped his craving. Code(s): F17.210 - NICOTINE DEPENDENCE, CIGARETTES, UNCOMPLICATED (4) Chest pain Assessment/Plan: Repeated bouts of central burning, tight chest pain with exertion lately, and one episode early am today while at rest. Multiple cardiac risks. EKG: ? old IWMI; NSR. TNI mildly elevated serially. EKG repeat unchanged (NSR; narrow Qs inferiorly). ECHO: normal LVEF and wall motion; mild LAE; borderline LVE; mild MR and TR. Metoprolol, lisinopril, amlodipine, atorvastatin started. Now on Lovenox, ASA. Clopidogrel loading (300-600 mg) once, then 75 mg daily. Nitrates if pain recurs. Plan for coronary artery evaluation (with TNI fluctuating and BP elevated, stress MIBI was postponed; coronary angiogram will likely be necessary, given the number of uncontrolled cardiac risk factors and ongoing episodes of chest pain). Addendum: Pt has agreed [facility] b e [facility] Code(s): R07.9 - CHEST PAIN, UNSPECIFIED Qualifiers: Chest pain type: unspecified Qualified Code(s): R07.9 - Chest pain, unspecified (5) Elevated troponin Code(s): R74.8 - ABNORMAL LEVELS OF OTHER SERUM ENZYMES (6) HTN (hypertension) Code(s): I10 - ESSENTIAL (PRIMARY) HYPERTENSION Qualifiers: Hypertension type: essential hypertension Qualified Code(s): I10 - Essential (primary) hypertension (7) [place] cardiac risk >20% in next 10 years Code(s): Z91.89 - OTH PERSONAL RISK FACTORS, NOT ELSEWHERE CLASSIFIED
== END 2018-11-18 15:11 | disposition short-term general hospital (02) ==
LOC: JER 06:52 → JERBED 09:33 → J4W 11-16 14:52
PROVIDERS: ADMIT Internal Medicine; ATTEND Internal Medicine
PROC: 3E033NZ Introduction of Analgesics, Hypnotics, Sedatives into Peripheral Vein, Percutaneous Approach (ICD-10-PCS; principal; 2018-11-15)
PROC: 3E0337Z Introduction of Electrolytic and Water Balance Substance into Peripheral Vein, Percutaneous Approach (ICD-10-PCS; 2018-11-15)
PROC: 3E033GC Introduction of Other Therapeutic Substance into Peripheral Vein, Percutaneous Approach (ICD-10-PCS; 2018-11-15)
DX: R07.9 Chest pain, unspecified (principal); R77.8 Other specified abnormalities of plasma proteins; I10 Essential (primary) hypertension; E11.9 Type 2 diabetes mellitus without complications; E78.5 Hyperlipidemia, unspecified; F17.210 Nicotine dependence, cigarettes, uncomplicated; Z79.84 Long term (current) use of oral hypoglycemic drugs; Z13.6 Encounter for screening for cardiovascular disorders
CPT/HCPCS: 36415; 71046-TC-FY; 80053; 80061; 82550; 83036; 83721; 84443; 84484; 85025; 85610; 85730; 93005; 93010; 93306-TC; 99285-25; A9502; G0378; J0131; J7030

== ENCOUNTER 2024-05-13 07:28 | Observation (INO) | payer OTHER, BC ==
[2024-05-13] MEDS ORDERED: TENECTEplase 50 MG VIAL IVPUSH ONE (07:40)
[2024-05-13] MEDS ORDERED: methylPREDNISolone NA SUCC 125 MG/2 ML VIAL ONE (07:54)
[2024-05-13 08:06] VITALS: BMI 29.5
[2024-05-13 08:15] LABS: BASO % 0.7 % (0-2.0); EOS % 1.4 % (0-4.5); HEMATOCRIT 48.5 % (35.4-49); HEMOGLOBIN 16.5 GM/dL (11.7-16.9); LYMPH % 26.5 % (8-40); MCH 29.7 pg (25.7-33.7); MEAN CELL VOLUME 87.4 fl (80-96); MONO % 8.4 % (3.8-10.2); PLATELET COUNT 243 10^3/uL (134-434); RBC 5.56 M/mm3 (4.00-5.60); RDW 13.5 % (11.9-15.9); WHITE BLOOD COUNT 10.6 K/mm3 (4.0-10.0)
[2024-05-13 08:21] LABS: INR 0.85 (0.83-1.09); PROTHROMBIN TIME (PATIENT) 9.8 SEC (9.7-13.0)
[2024-05-13 08:24] LABS: ACTIVATED PTT 32.2 SECONDS (25.2-36.5)
[2024-05-13 08:29] LABS: POTASSIUM 4.2 mmol/L (3.5-5.1)
[2024-05-13 08:31] LABS: ALBUMIN 3.8 g/dl (3.4-5.0); CALCIUM 8.8 mg/dL (8.5-10.1)
[2024-05-13 08:33] LABS: BLOOD UREA NITROGEN 14.6 mg/dL (7-18)
[2024-05-13 08:35] LABS: CREATININE 0.9 mg/dL (0.55-1.3)
[2024-05-13 08:36] LABS: TOT PROT 6.7 g/dl (6.4-8.2)
[2024-05-13 08:37] LABS: BILIRUBIN,TOTAL 0.4 mg/dL (0.2-1)
[2024-05-13] MEDS: SODIUM CHLORIDE 1,000 ML IV SCH (09:21)
[2024-05-13 09:36] LABS: URINE APPEARANCE CLEAR; URINE BILIRUBIN NEGATIVE (NEGATIVE); URINE COLOR YELLOW; URINE GLUCOSE (UA) 1+ (NEGATIVE); URINE KETONE NEGATIVE (NEGATIVE); URINE LEUK ESTERASE NEGATIVE (NEGATIVE); URINE NITRITE NEGATIVE (NEGATIVE); URINE PROTEIN NEGATIVE (NEGATIVE); URINE UROBILINOGEN 0.2 mg/dL (0.2-1.0)
[2024-05-13] MEDS ORDERED: ATORVASTATIN CA 80 MG TABLET (FP) ONE (10:04)
[2024-05-13] MEDS ORDERED: ASPIRIN 81 MG CHEWABLE TABLETS ONE (10:05)
[2024-05-13] MEDS: ASPIRIN 81 MG CHEWABLE TABLETS PO ONE (10:09)
[2024-05-13] MEDS: ATORVASTATIN CA 80 MG TABLET (FP) PO ONE (10:09)
[2024-05-13] MEDS ORDERED: CLOPIDOGREL BISULFATE 75 MG TABLET (FP) ONE (11:29)
[2024-05-13] MEDS: CLOPIDOGREL BISULFATE 75 MG TABLET (FP) PO SCH (11:31)
[2024-05-13] MEDS ORDERED: ACETAMINOPHEN 325 MG TABLET (FP) PO PRN (16:52)
[2024-05-13] MEDS: INSULIN ASPART SLIDING SCALE (NOVOLOG) 1 VIAL SQ SCH (17:01)
[2024-05-13] MEDS: NICOTINE 21 MG/24 HOURS TOPICAL PATCH TD SCH (21:36)
[2024-05-14 05:53] VITALS: TEMP 97.9
[2024-05-14 07:49] LABS: MAGNESIUM 1.9 mg/dL (1.8-2.4)
[2024-05-14 07:50] LABS: HEMATOCRIT 46.1 % (35.4-49); HEMOGLOBIN 15.8 GM/dL (11.7-16.9); MCH 30.1 pg (25.7-33.7); MCHC 34.3 g/dl (32.0-35.9); MEAN CELL VOLUME 87.7 fl (80-96); MEAN PLT VOLUME 8.2 fl (7.5-11.1); PLATELET COUNT 236 10^3/uL (134-434); RBC 5.26 M/mm3 (4.00-5.60); RDW 13.9 % (11.9-15.9); WHITE BLOOD COUNT 8.8 K/mm3 (4.0-10.0)
[2024-05-14 07:52] LABS: PHOSPHOROUS 3.1 mg/dL (2.5-4.9)
[2024-05-14 09:29] LABS: ANISOCYTOSIS 0; MACROCYTOSIS 0
[2024-05-14] MEDS: ASPIRIN 81 MG CHEWABLE TABLETS PO SCH (09:41)
[2024-05-14] MEDS: metoPROLOL SUCCINATE 25 MG TAB.SR.24H (FP) PO SCH (10:26)
[2024-05-14] MEDS: amLODIPine BESYLATE 5 MG TABLET (FP) PO SCH (10:26)
[2024-05-14 10:44] VITALS: BP 139/80; PULSE 74
[2024-05-14 11:25] VITALS: RESP 16
[2024-05-14] MEDS ORDERED: ROSUVASTATIN CA 20 MG TABLET PO SCH (22:00)
== END 2024-05-14 11:46 | disposition home or self-care (01) ==
LOC: JER 07:28 → JERBED 10:04 → INTOOBSV 10:04 → UNDOADMOB 10:04 → JERBED 10:35 → J4W 13:07
PROVIDERS: ADMIT Internal Medicine; ATTEND Internal Medicine
PROC: 3E013VG Introduction of Insulin into Subcutaneous Tissue, Percutaneous Approach (ICD-10-PCS; principal; 2024-05-13)
DX: G45.9 Transient cerebral ischemic attack, unspecified (principal); I25.10 Atherosclerotic heart disease of native coronary artery without angina pectoris; I11.9 Hypertensive heart disease without heart failure; Z95.5 Presence of coronary angioplasty implant and graft; R20.0 Anesthesia of skin; E11.9 Type 2 diabetes mellitus without complications; Z86.73 Personal history of transient ischemic attack (TIA), and cerebral infarction without residual deficits; F17.210 Nicotine dependence, cigarettes, uncomplicated
CPT/HCPCS: 36415; 70450-TC; 70544-TC; 70547-TC; 70551-TC; 80053; 80061; 81003; 82550; 82553; 82962; 83036; 83735; 84100; 84484; 85025; 85027; 85610; 85651; 85730; 86850; 86900; 86901; 93005; 93010; 93306-TC; 99285-25; G0378